=== PATIENT | female | born 1965 | race Two or more races ===

== ENCOUNTER 2016-08-26 13:33 | Emergency (ER) | payer MEDICAID, OTHER ==
[~2016-08-26] VITALS: Ht 152.4 cm; Wt 73.5 kg
[~2016-08-26 13:33] MED LIST: ATIVAN0.5 MG ORAL
[2016-08-26] MEDS ORDERED: TdaP Vaccine 0.5ml Syr IM ONE (14:00)
[2016-08-26 14:30] VITALS: BP 129/76
[2016-08-26] MEDS ORDERED: BACITRACIN-P28.35 GM TP (14:32)
--- NOTE | 2016-08-26 14:32 | Emergency Room Report ---
History of Present Illness General Chief Complaint: Laceration Source: Patient Present Illness HPI 50-year-old female presents emergency department complaining of laceration to the left index finger times one hour. Patient states she was attempting to feel acutely when she accidentally slipped with the knife and struck her index finger. She denies taking blood thinning medications she is not up-to-date with tetanus vaccination she states bleeding has subsided at this time. Denies numbness tingling or loss of sensation or gross motor movements of the extremities, incontinence of bowel or bladder. Denies CP, Palpitations, LOC, AMS , dizziness, Changes in Vision, Sensation, paresthesias, or a sudden severe headache. Allergies: Coded Allergies: No Known Allergies (Unverified , 03/14/12) Patient History Past Medical History: see triage record Past Surgical History: none Pertinent Family History: none Last Menstrual Period: na Now: No Immunizations: other - tetanus not utd Reviewed Nursing Documentation: PMH: Agreed, PSxH: Agreed Nursing Documentation-PMH Past Medical History: No History, Except For Review of Systems All Other Systems: negative except mentioned in HPI Physical Exam Vital Signs Date Time Temp Pulse Resp B/P Pulse Ox O2 Delivery O2 Flow Rate FiO2 08/26/16 13:46 98.1 81 18 125/73 98 Room Air Sp02 EP Interpretation: reviewed, normal General Appearance: no apparent distress, alert, GCS 15, non-toxic Head: normocephalic, atraumatic Eyes: bilateral eye PERRL, bilateral eye normal inspection ENT: hearing grossly normal, normal pharynx, no angioedema, normal voice Neck: full range of motion, supple/symm/no masses Respiratory: lungs clear, normal breath sounds, speaking full sentences Cardiovascular #1: regular rate, rhythm, normal capillary refill Musculoskeletal: back normal, gait/station normal, normal range of motion, non- tender, no calf tenderness Neurologic: alert, oriented x3, responsive, motor strength/tone normal, sensory intact, speech normal Psychiatric: judgement/insight normal, memory normal, mood/affect normal Skin: normal color, no rash, warm/dry, well hydrated, laceration - superficial left index finger laceration approx 0.7 cm in length Procedures Laceration/Wound Repair Laceration/Wound Repair : Consent: Verbal Wound Location: upper extremity - left index finger Wound's Depth, Shape: superficial Wound Length (cm): 1 Wound Explored: clean Irrigated w/ Saline (ccs): 200 Wound Repaired With: Dermabond Layer Closure?: No Sterile Dressing Applied?: No Splint Applied?: Yes Type of Splint Applied: finger splint Sling Applied?: No Patient Tolerated: Well Complications: None Medical Decision Making PA Attestation Dr. Anand is my supervising Physician whom patient management has been discussed with. Diagnostic Impression: Primary Impression: Laceration ER Course 50-year-old female presents emergency department complaining of laceration to the left index finger times one hour. Patient states she was attempting to feel acutely when she accidentally slipped with the knife and struck her index finger. She denies taking blood thinning medications she is not up-to-date with tetanus vaccination she states bleeding has subsided at this time. Ddx considered but are not limited to laceration, tendon injury, cellulitis, amputation Vital signs: are WNL, pt. is afebrile H&PE are most consistent with: superficial left index finger laceration approx 0.7 cm in length ORDERS: none required at this time, the diagnosis is clinical ED INTERVENTIONS: -Tetanus vaccine was administered as pt. vaccination status was unknown. - The wound was copiously irrigated with normal saline, and explored for foreign body for which no FB was found. - The wound was approximated and closed using derma-coley. -Finger Splint applied to the left index finger by central supply tech. Pt. remains neurovascularly intact. Discussed with patient: That we make every effort to approximate the laceration as best as we can so that scarring will be as cosmetically pleasing as possible with our limited cosmetic skill set in the Emergency dept. Regardless of our best efforts there will be scarring after laceration repair. The extent of scarring is unknown at this time. DISCHARGE: At this time pt. is stable for d/c to home. Will provide printed patient care instructions, and any necessary prescriptions. Care plan and follow up instructions have been discussed with the patient prior to discharge. Last Vital Signs Date Time Temp Pulse Resp B/P Pulse Ox O2 Delivery O2 Flow Rate FiO2 08/26/16 13:46 98.1 81 18 125/73 98 Room Air Disposition: HOME, SELF-CARE Condition: Stable Scripts Bacitracin/Polymyxin B Sulfate (BACITRACIN-POLYMYXIN OINTMENT) 28.35 Gm Oint...g. 1 APPLIC TP BID, #28.3 GM Prov: Dora Calzada 08/26/16 Patient Instructions: Nonsutured Laceration Care Additional Instructions: Take medications as directed. Follow up with PCP in 3-5 days Return sooner to ED if new symptoms occur, or current symptoms become worse. - Please note that this Emergency Department Report was dictated using [employer] knowledge [employer] technology software, occasionally this can lead to erroneous entry secondary to interpretation by the dictation equipment. Dora Calzada August 26, 2016 14:32
== END 2016-08-26 14:40 | disposition home or self-care (01) ==
LOC: EMR 14:00
DX: S61.211A Laceration without foreign body of left index finger without damage to nail, initial encounter (principal); Z23 Encounter for immunization; W26.0XXA Contact with knife, initial encounter; Y93.9 Activity, unspecified; Y92.9 Unspecified place or not applicable
CPT/HCPCS: 12001; 29130; 90471; 90715; 96372; 99284; Z7502

== ENCOUNTER 2019-03-18 22:45 | Emergency (ER) | payer MEDICAID, OTHER ==
[~2019-03-18] VITALS: Ht 154.9 cm; Wt 74.4 kg
[~2019-03-18 22:45] MED LIST changes: +BACITRACIN-P28.35 GM TP
[2019-03-18] MEDS ORDERED: ALKA-SELTZER E500 MG (22:54)
--- NOTE | 2019-03-18 22:55 | NUR ---
ED Nurse Note: Pt walked in to ED for C/O pain to epigastric area and feels very gassy. pt reports nauseous since noon today. pt also reports urinary urgency and frequency since ealier today,
[2019-03-18 22:56] VITALS: BP 120/71
--- NOTE | 2019-03-18 23:45 | NUR ---
ED Nurse Note: URINE AND BLOOD SAMPLE SENT DOWN TO LAB
--- NOTE | 2019-03-18 23:50 | Emergency Room Report ---
History of Present Illness General Chief Complaint: Abdominal Pain Source: Family Member Present Illness HPI 53-year-old female presenting with epigastric and right upper quadrant abdominal pain. Patient reported symptoms started this afternoon. Patient took iybp-pyi-vowakhu antacid with no improvement. No episodes of vomiting or diarrhea. Last bowel movement yesterday. Nonbloody. States she has severe nausea. She reported eating coffee, waffles, sweet potato and chicken tonight.. Allergies: Coded Allergies: No Known Allergies (Unverified , 03/14/12) Nursing Documentation-[facility] Past Medical History: No History, Except For Review of Systems Constitutional: Denies: chills, fever Respiratory: Denies: cough, shortness of breath Cardiovascular: Denies: chest pain, palpitations Gastrointestinal: Reports: abdominal pain; Denies: diarrhea, vomiting Genitourinary: Denies: hematuria, pain Musculoskeletal: Denies: joint swelling Skin: Denies: rash, lesions Neurological: Denies: headache, dizziness Physical Exam Vital Signs Date Time Temp Pulse Resp B/P (MAP) Pulse Ox O2 Delivery O2 Flow Rate FiO2 03/18/19 22:50 97.7 78 19 122/71 (88) 98 Room Air Sp02 EP Interpretation: reviewed General Appearance: well appearing, no apparent distress, non-toxic Head: normocephalic, atraumatic Eyes: bilateral eye normal inspection ENT: hearing grossly normal, EOM grossly intact, moist mucus membranes Neck: supple Respiratory: lungs clear, normal breath sounds, no respiratory distress, speaking full sentences Cardiovascular #1: regular rate, rhythm, normal capillary refill Cardiovascular #2: 2+ radial (R), 2+ radial (L) Gastrointestinal: soft, no mass, no organomegaly, non-distended, tenderness - Right upper quadrant Rectal: deferred Musculoskeletal: moves extm spontaneously, no lower extremity edema Neurologic: grossly normal Psychiatric: mood/affect normal Skin: warm/dry, normal turgor Medical Decision Making Diagnostic Impression: Primary Impression: Cholelithiasis ER Course 53-year-old female presents epigastric abdominal pain. Found to have right upper quadrant abdominal pain. Differential includes but is not limited to cholecystitis, cholelithiasis, acute abdomen, pancreatitis, gastritis, intra-abdominal injury, mass. We will perform right upper quadrant ultrasound, lab testing, IV fluids, and give pain medication. Laboratory Tests Test 03/18/19 23:00 03/18/19 23:53 Urine Color Pale yellow Urine Appearance Slightly cloudy Urine pH 8 (4.5-8.0) Urine Specific [place] 1.010 (1.005-1.035) Urine Protein Negative (NEGATIVE) Urine Glucose (UA) 2+ (NEGATIVE) H Urine Ketones Negative (NEGATIVE) Urine Blood 3+ (NEGATIVE) H Urine Nitrite Negative (NEGATIVE) Urine Bilirubin Negative (NEGATIVE) Urine Urobilinogen Normal MG/DL (0.0-1.0) Urine Leukocyte Esterase Negative (NEGATIVE) Urine RBC 2-4 /HPF (0 - 2) H Urine WBC 0-2 /HPF (0 - 2) Urine Squamous Epithelial Cells Few /LPF (NONE/OCC) Urine Amorphous Sediment Many /LPF (NONE) H Urine Bacteria Moderate /HPF (NONE) H Urine HCG, Qualitative Negative (NEGATIVE) White Blood Count 7.8 K/UL (4.8-10.8) Red Blood Count 4.36 M/UL (4.20-5.40) Hemoglobin 13.1 G/DL (12.0-16.0) Hematocrit 39.2 % (37.0-47.0) Mean Corpuscular Volume 90 FL (80-99) Mean Corpuscular Hemoglobin 30.2 PG (27.0-31.0) Mean Corpuscular Hemoglobin Concent 33.6 G/DL (32.0-36.0) Red Cell Distribution Width 11.5 % (11.6-14.8) L Platelet Count 219 K/UL (150-450) Mean Platelet Volume 5.9 FL (6.5-10.1) L Neutrophils (%) (Auto) % (45.0-75.0) Lymphocytes (%) (Auto) % (20.0-45.0) Monocytes (%) (Auto) % (1.0-10.0) Eosinophils (%) (Auto) % (0.0-3.0) Basophils (%) (Auto) % (0.0-2.0) Sodium Level 143 MMOL/L (136-145) Potassium Level 3.6 MMOL/L (3.5-5.1) Chloride Level 106 MMOL/L (98-107) Carbon Dioxide Level 29 MMOL/L (21-32) Anion Gap 8 mmol/L (5-15) Blood Urea Nitrogen 16 mg/dL (7-18) Creatinine 0.8 MG/DL (0.55-1.30) Estimate Glomerular Filtration Rate > 60 mL/min (>60) Glucose Level 175 MG/DL (74-106) H Calcium Level 9.2 MG/DL (8.5-10.1) Total Bilirubin 0.4 MG/DL (0.2-1.0) Aspartate Amino Transferase (AST) 22 U/L (15-37) Alanine Aminotransferase (ALT) 44 U/L (12-78) Alkaline Phosphatase 53 U/L (46-116) Total Protein 7.6 G/DL (6.4-8.2) Albumin 3.8 G/DL (3.4-5.0) Globulin 3.8 g/dL Albumin/Globulin Ratio 1.0 (1.0-2.7) Lipase 182 U/L (73-393) Lab Results Impression CBC within normal limits, CMP within normal limits, urinalysis mild increase in urine blood, no leukocyte esterase, no nitrites CT/MRI/US Diagnostic Results CT/MRI/US Diagnostic Results : Impression Procedure: US ABD Complete Indication: Abdominal pain Technique: Dillon-scale and duplex images of the upper abdomen were obtained Comparison: none Findings: Gallbladder demonstrates a gallstone. No wall thickening or pericholecystic fluid. Sonographic Mathur's sign is negative. Common bile duct measures 3 mm in diameter. No intrahepatic biliary ductal dilatation. Liver demonstrates diffusely increased echogenicity, consistent with diffuse hepatocellular disease, most likely fatty change. Portal vein and hepatic veins are patent. Pancreas is unremarkable. Spleen is unremarkable. Left kidney measures 10.8 cm in length. Right kidney measures 10 cm length. Both kidneys demonstrate normal echogenicity. There is no hydronephrosis. No focal abnormality . Non-aneurysmal abdominal aorta . Impression: Cholelithiasis. Negative for dilated bile ducts Liver demonstrates diffusely increased echogenicity, consistent with diffuse hepatocellular disease, most likely fatty change. This agrees with the preliminary interpretation provided overnight by [employer] teleradiology service. Last Vital Signs Date Time Temp Pulse Resp B/P (MAP) Pulse Ox O2 Delivery O2 Flow Rate FiO2 03/18/19 22:56 97.7 81 19 120/71 98 Room Air Status: improved Reevaluation Impression Patient found to have cholelithiasis. Patient recommended close follow-up with primary care doctor and surgeon for reevaluation and possible gallbladder removal. No signs of cholecystitis at this time. Patient is stable for outpatient follow-up and discharge. Patient given copies of all testing. Disposition: HOME, SELF-CARE Scripts Famotidine* (Pepcid 20mg tablet*) 20 Mg Tablet 20 MG ORAL DAILY for 14 Days, #14 TAB 0 Refills Prov: Cheikh Hernandez M.D. 03/19/19 Oxycodone/Acetaminophen 5-325* (PERCOCET 5-325 MG TABLET*) 1 Each Tablet 1 TAB ORAL Q4H PRN for For Pain, #10 TAB 0 Refills Prov: Cheikh Hernandez M.D. 03/19/19 Referrals: [facility],REFERRING (PCP) [facility] Patient Instructions: Cholelithiasis Additional Instructions: Follow-up with your primary care doctor in 2 to 3 days for reevaluation. Please have a low-fat diet to prevent episodes of gallbladder pain. If you develop fever, or any new symptoms return to emergency room for further evaluation Cheikh Hernandez M.D. Mar 18, 2019 23:50
[2019-03-18 23:54] LABS: BILIRUBIN, URINE NEGATIVE (NEGATIVE); COLOR,URINE PALE YELLOW; GLUCOSE, URINE (UA) 2+ (NEGATIVE); KETONES,URINE NEGATIVE (NEGATIVE); LEUKOCYTE ESTERASE ,URINE NEGATIVE (NEGATIVE); NITRITE,URINE NEGATIVE (NEGATIVE); PH,URINE 8 (4.5-8.0); PROTEIN,URINE NEGATIVE (NEGATIVE); UROBILINOGEN,URINE NORMAL MG/DL (0.0-1.0)
[2019-03-19] MEDS ORDERED: Morphine Sulfate 4mg/ml Inj (IV USE ONLY) IVP ONE
[2019-03-19 00:07] LABS: HEMATOCRIT 39.2 % (37.0-47.0); HEMOGLOBIN 13.1 G/DL (12.0-16.0); MEAN CORPUSCULAR VOLUME 90 FL (80-99); PLATELET COUNT 219 K/UL (150-450); RED BLOOD COUNT 4.36 M/UL (4.20-5.40); RED CELL DISTRIBUTION WIDTH 11.5 % (11.6-14.8); WHITE BLOOD COUNT 7.8 K/UL (4.8-10.8)
[2019-03-19 00:08] LABS: APPEARANCE,URINE SLIGHTLY CLOUDY
[2019-03-19 00:18] LABS: ANION GAP 8 mmol/L (5-15); BLOOD UREA NITROGEN 16 mg/dL (7-18); CALCIUM 9.2 MG/DL (8.5-10.1); CARBON DIOXIDE 29 MMOL/L (21-32); CHLORIDE 106 MMOL/L (98-107); CREATININE 0.8 MG/DL (0.55-1.30); POTASSIUM 3.6 MMOL/L (3.5-5.1); SODIUM 143 MMOL/L (136-145)
[2019-03-19 00:22] LABS: ALANINE AMINOTRANSFERASE 44 U/L (12-78); ALBUMIN 3.8 G/DL (3.4-5.0); ALKALINE PHOSPHATASE 53 U/L (46-116); ASPARTATE AMINO TRANSFERASE 22 U/L (15-37); BILIRUBIN,TOTAL 0.4 MG/DL (0.2-1.0)
--- NOTE | 2019-03-19 00:35 | NUR ---
ED Nurse Note: US AT BEDSIDE/.
[2019-03-19] MEDS ORDERED: Morphine Sulfate 2mg/ml Inj(IV/IM USE ONLY) IVP ONE (01:15)
[2019-03-19] MEDS ORDERED: PERCOCET 5-3251 EACH ORAL (01:16)
[2019-03-19] MEDS ORDERED: FAMOTIDINE20 MG ORAL (01:16)
[2019-03-19 01:22] VITALS: BP 70/71
--- NOTE | 2019-03-19 01:22 | NUR ---
ER DISCHARGE NOTE: Patient is cleared to be discharged per ERMD, pt is aox4, on room air, with stable vital signs. pt was given dc and prescription instructions, pt was able to verbalize understanding, pt id band and iv site removed without complications. pt is able to ambulate with steady gait. pt took all belongings.
--- NOTE | 2019-03-20 08:30 | Diagnostic Imaging Report ---
Indication: Abdominal pain Technique: Dillon-scale and duplex images of the upper abdomen were obtained Comparison: none Findings: Gallbladder demonstrates a gallstone. No wall thickening or pericholecystic fluid. Sonographic Mathur's sign is negative. Common bile duct measures 3 mm in diameter. No intrahepatic biliary ductal dilatation. Liver demonstrates diffusely increased echogenicity, consistent with diffuse hepatocellular disease, most likely fatty change. Portal vein and hepatic veins are patent. Pancreas is unremarkable. Spleen is unremarkable. Left kidney measures 10.8 cm in length. Right kidney measures 10 cm length. Both kidneys demonstrate normal echogenicity. There is no hydronephrosis. No focal abnormality . Non-aneurysmal abdominal aorta . Impression: Cholelithiasis. Negative for dilated bile ducts Liver demonstrates diffusely increased echogenicity, consistent with diffuse hepatocellular disease, most likely fatty change. This agrees with the preliminary interpretation provided overnight by [employer] teleradiology service.
== END 2019-03-19 01:22 | disposition home or self-care (01) ==
LOC: EMR 23:47
DX: K80.20 Calculus of gallbladder without cholecystitis without obstruction (principal)
CPT/HCPCS: 36415; 76700; 80053; 81003; 81025; 83690; 85025; 87086; 87181; 96361; 96374; 96375; 96376; J2270; J2405; J7030; Z7502; 99284

== ENCOUNTER 2019-05-24 13:04 | Emergency (ER) | payer OTHER ==
[~2019-05-24] VITALS: Ht 152.4 cm; Wt 67.1 kg
[~2019-05-24 13:04] MED LIST changes: +ALKA-SELTZER E500 MG; +FAMOTIDINE20 MG ORAL; +PERCOCET 5-3251 EACH ORAL
--- NOTE | 2019-05-24 13:09 | NUR ---
ED Nurse Note: Pt in the rest room.
[2019-05-24 13:20] VITALS: BP 127/76
--- NOTE | 2019-05-24 13:22 | NUR ---
ED Nurse Note: pt walked in to ER from home due to pelvic pain with burining sensation to urinate since this morning. pt provided urine sample and pink color notified. ERMD made aware. pt aao x4 and ambulatory. gramicing for pelvic pain. calm and cooperative. skin clean and intact. no cardiac or pulmonary distress noted at this moment.
--- NOTE | 2019-05-24 13:25 | NUR ---
ED Nurse Note: urine sent to lab.
--- NOTE | 2019-05-24 13:37 | NUR ---
ED Nurse Note: x-ray at bedside.
[2019-05-24 13:54] LABS: APPEARANCE,URINE CLEAR; BILIRUBIN, URINE NEGATIVE (NEGATIVE); COLOR,URINE PALE YELLOW; GLUCOSE, URINE (UA) NEGATIVE (NEGATIVE); KETONES,URINE NEGATIVE (NEGATIVE); LEUKOCYTE ESTERASE ,URINE 3+ (NEGATIVE); NITRITE,URINE NEGATIVE (NEGATIVE); PH,URINE 7 (4.5-8.0); PROTEIN,URINE 2+ (NEGATIVE); UROBILINOGEN,URINE NORMAL MG/DL (0.0-1.0)
--- NOTE | 2019-05-24 14:19 | NUR ---
ED Nurse Note: ERMD at bedside.
[2019-05-24] MEDS ORDERED: PHENAZOPYRIDIN100 MG ORAL (14:25)
[2019-05-24] MEDS ORDERED: NITROFURANTOIN100 M2 ORAL (14:25)
[2019-05-24] MEDS ORDERED: DOCUSATE SODIU100 MG ORAL (14:25)
[2019-05-24 14:29] VITALS: BP 125/64
--- NOTE | 2019-05-24 14:30 | NUR ---
ED Nurse Note: Pt cleared by health care Provider for discharge. DC instructions/prescription was given and explained to pt and verbalized understanding of teachings. All medical deviecs such as ID band removed. Pt is AAO x4, ambulatory and left with all personal belongings.
--- NOTE | 2019-05-25 10:03 | Diagnostic Imaging Report ---
Indication: Abdominal pain Technique: Supine view of the abdomen Comparison: none Findings: Bowel gas pattern is unremarkable. No unusual masses or calcifications. Impression: No acute process
--- NOTE | 2019-05-25 14:30 | Emergency Room Report ---
History of Present Illness General Chief Complaint: Pelvic Pain Source: Patient Present Illness HPI 53-year-old female presents ED for evaluation of dysuria. Started this morning. Increased urinary frequency. Discomfort with urinating. Burning, 4 out of 10, nonradiating. Denies fevers or chills. Denies flank pain. Denies nausea or vomiting. Notes some straining during defecation. Noted some blood in her stool. Denies abdominal pain. Denies taking blood thinners. No other aggravating relieving factors. Denies any other associated symptoms Allergies: Coded Allergies: No Known Allergies (Unverified , 03/14/12) Patient History Past Medical History: none Past Surgical History: none Pertinent Family History: none Social History: Denies: smoking, alcohol use, drug use Now: No Immunizations: UTD Reviewed Nursing Documentation: PMH: Agreed; PSxH: Agreed Nursing Documentation-PMH Past Medical History: No Stated History Review of Systems All Other Systems: negative except mentioned in HPI Physical Exam Vital Signs Date Time Temp Pulse Resp B/P (MAP) Pulse Ox O2 Delivery O2 Flow Rate FiO2 05/24/19 13:14 98.6 86 17 127/76 (93) 99 Room Air Sp02 EP Interpretation: reviewed, normal General Appearance: no apparent distress, alert, GCS 15, non-toxic Head: normocephalic, atraumatic Eyes: bilateral eye normal inspection, bilateral eye PERRL ENT: hearing grossly normal, normal pharynx, no angioedema, normal voice Neck: full range of motion, supple/symm/no masses Respiratory: chest non-tender, lungs clear, normal breath sounds, speaking full sentences Cardiovascular #1: regular rate, rhythm, no edema Cardiovascular #2: 2+ carotid (R), 2+ carotid (L), 2+ radial (R), 2+ radial (L) , 2+ dorsalis pedis (R), 2+ dorsalis pedis (L) Gastrointestinal: normal bowel sounds, non tender, soft, non-distended, no guarding, no rebound Rectal: deferred Genitourinary: normal inspection, no CVA tenderness Musculoskeletal: back normal, normal range of motion, gait/station normal, non- tender Neurologic: alert, motor strength/tone normal, oriented x3, sensory intact, responsive, speech normal Psychiatric: judgement/insight normal, memory normal, mood/affect normal, no suicidal/homicidal ideation Reflexes: 3+ bicep (R), 3+ bicep (L), 3+ tricep (R), 3+ tricep (L), 3+ knee (R) , 3+ knee (L) Lymphatic: no adenopathy Medical Decision Making Diagnostic Impression: Primary Impression: Constipation Qualified Codes: K59.00 - Constipation, unspecified Additional Impression: UTI (urinary tract infection) Qualified Codes: N39.0 - Urinary tract infection, site not specified ER Course Hospital Course 53-year-old female presents to ED complaining of dysuria. constipation Differential diagnoses include: UTI, cystitis, pyelonephritis Clinical course Patient placed on stretcher. After initial history and physical I ordered UA, KUB UA positive bacteria. KUB shows Fecal impaction. I discussed findings with patient. Will discharge home with antibiotics and stool softeners. Safe for discharge for close outpatient follow-up. States she has a PMD Diagnosis - UTI, constipation Stable and discharged home with prescriptions for Rx pyridium, macrobid, colace. Instructed to followup with PMD. Return to ED if symptoms recur or worsen Labs Test 05/24/19 13:20 Urine Color Pale yellow Urine Appearance Clear Urine pH 7 (4.5-8.0) Urine Specific [place] 1.005 (1.005-1.035) Urine Protein 2+ (NEGATIVE) Urine Glucose (UA) Negative (NEGATIVE) Urine Ketones Negative (NEGATIVE) Urine Blood 5+ (NEGATIVE) Urine Nitrite Negative (NEGATIVE) Urine Bilirubin Negative (NEGATIVE) Urine Urobilinogen Normal MG/DL (0.0-1.0) Urine Leukocyte Esterase 3+ (NEGATIVE) Urine RBC 5-10 /HPF (0 - 2) Urine WBC 15-20 /HPF (0 - 2) Urine Squamous Epithelial Cells Few /LPF (NONE/OCC) Urine Bacteria Few /HPF (NONE) Other X-Ray Diagnostic Results Other X-Ray Diagnostic Results : X-Ray ordered: KUB # of Views/Limited Vs Complete: 1 View Indication: Pain EP Interpretation: Yes Interpretation: nonspecific bowel gas, no sbo, other - fecal impaction noted Impression: Other - Constipation Electronically Signed by: Electronically signed by Fabricio Eng MD Last Vital Signs Date Time Temp Pulse Resp B/P (MAP) Pulse Ox O2 Delivery O2 Flow Rate FiO2 05/24/19 14:29 98.4 76 17 125/64 99 Room Air Status: improved Disposition: HOME, SELF-CARE Condition: Stable Scripts Docusate Sodium* (DOCUSATE SODIUM*) 100 Mg Capsule 100 MG ORAL THREE TIMES A DAY, #30 CAP Prov: Fabricio Eng MD 05/24/19 Phenazopyridine Hcl* (PYRIDIUM*) 100 Mg Tablet 100 MG ORAL THREE TIMES A DAY for 3 Days, TAB Prov: Fabricio Eng MD 05/24/19 Nitrofurantoin Monohyd/M-Cryst* (MACROBID 100 MG*) 100 Mg Capsule 100 MG ORAL EVERY 12 HOURS for 7 Days, CAP Prov: Fabricio Eng MD 05/24/19 Patient Instructions: Constipation, Adult, [id number] Fabricio Eng MD May 25, 2019 14:30
== END 2019-05-24 14:30 | disposition home or self-care (01) ==
LOC: EMR 13:26
DX: N39.0 Urinary tract infection, site not specified (principal); K59.00 Constipation, unspecified
CPT/HCPCS: 74018; 81003; 87086; Z7502; 99283